=== PATIENT | male | born 1960 | race Hispanic/Latino ===

== ENCOUNTER 2020-05-23 03:04 | Emergency (ER) | payer MEDICAID ==
[2020-05-23 05:16] LABS: Basophils # (Auto) 0.1 K/mm3 (0.0-0.1); Basophils % (Auto) 0.9 % (0.0-1.8); Eosinophils # (Auto) 0.8 K/mm3 (0.0-0.4); Eosinophils % (Auto) 9.8 % (0.0-4.3); Hematocrit 28.1 % (35.5-45.6); Hemoglobin 9.2 gm/dl (11.8-15.2); Lymphocytes # (Auto) 1.4 K/mm3 (1.2-5.4); Lymphocytes % (Auto) 18.3 % (13.4-35.0); Mean Corpuscular HGB Conc 33 % (32-34); Mean Corpuscular Volume 91 fl (84-94); Monocytes # (Auto) 1.1 K/mm3 (0.0-0.8); Monocytes % (Auto) 13.9 % (0.0-7.3); Platelet Count 477 K/mm3 (140-440); Red Blood Count 3.09 M/mm3 (3.65-5.03); Red Cell Distribution Width 14.2 % (13.2-15.2)
[2020-05-23 05:20] LABS: Bacteria,Urine 1+ /HPF (Negative); Bilirubin,Urine NEG (Negative); Blood,Urine SM (Negative); Color,Urine Yellow (Yellow); Hyaline Casts,Urine 1 /LPF; Mucus,Urine FEW /HPF; Protein,Urine <15 mg/dL mg/dL (Negative); Urobilinogen,Urine < 2.0 mg/dL (<2.0)
[2020-05-23 05:24] LABS: Alanine Aminotransferase 17 units/L (7-56); Albumin 3.3 g/dL (3.9-5); BUN/Creatinine Ratio 18; Blood Urea Nitrogen 18 mg/dL (9-20); Calcium 9.9 mg/dL (8.4-10.2); Hemolysis Index 3
--- NOTE | 2020-05-23 07:45 | Emergency Department Report ---
ED General Adult HPI - General Chief complaint: Abdominal Pain Stated complaint: ABD PAIN PUI?: No Time Seen by Provider: 05/23/20 07:43 Source: patient Mode of arrival: Ambulatory Limitations: No Limitations - History of Present Illness Initial comments: Patient is a 59-year-old male that comes to the emergency room complaining of mid abdominal pain for 2 weeks off and on. His pain is in the epigastric upper regions of the abdomen not lower. He denies fever or chills. He does endorse dark stools, nausea, and diarrhea. He denies fever or chills. He denies coughing. Patient states he is not taking his home blood pressure Norvasc because he is out of it. He denies pain in his chest. He denies shortness of breath. Pain is most likely GERD or gastritis secondary to alcohol abuse. However, given his endorsement of cocaine and hypertension and need to rule out aortic dissection and acute coronary syndrome. Patient drinks daily smokes cigarettes daily and utilizes recreational drugs the last of which was cocaine 4 days ago. Patient denies any previous cardiac disease or strokes. Usual care is received at [place]. -: Gradual, days(s) Location: abdomen Radiation: non-radiation Consistency: intermittent Improves with: none Worsens with: none Associated Symptoms: nausea/vomiting. denies: confusion, chest pain, cough, diaphoresis, fever/chills, headaches, loss of appetite, malaise, rash, seizure, shortness of breath, syncope, weakness Treatments Prior to Arrival: none - Related Data Previous Rx's Medication Instructions Recorded Last Taken Type Amlodipine Besylate [Norvasc] 5 mg PO DAILY #30 tablet 05/23/20 Unknown Rx Sulfamethoxazole/Trimethoprim 1 each PO BID #10 tablet 05/23/20 Unknown Rx [Bactrim DS TAB] Allergies Allergy/AdvReac Type Severity Reaction Status Date / Time ibuprofen [From Motrin] Allergy Dizziness Verified 05/23/20 03:38 ED Review of Systems ROS: Stated complaint: ABD PAIN Other details as noted in HPI Comment: All other systems reviewed and negative ED Past Medical Hx - Past Medical History Previous Medical History?: Yes Hx Hypertension: Yes Hx CVA: No Hx Heart Attack/AMI: No Hx Congestive Heart Failure: No Hx Diabetes: No Hx Deep Vein Thrombosis: No Hx Pulmonary Embolism: No Hx GERD: No Hx Liver Disease: No Hx Renal Disease: No Hx of Cancer: No Hx Sickle Cell Disease: No Hx Arthritis: No Hx Headaches / Migraines: No Hx Seizures: No Hx Kidney Stones: No Hx Psychiatric Treatment: No Hx Asthma: No Hx COPD: No Hx Tuberculosis: No Hx Dementia: No Hx HIV: No Additional medical history: Obese - Surgical History Past Surgical History?: No - Family History Family history: no significant - Social History Smoking Status: Current Every Day Smoker Substance Use Type: Alcohol, Cocaine, Methamphetamines - Medications Home Medications: Home Medications Medication Instructions Recorded Confirmed Last Taken Type Amlodipine Besylate [Norvasc] 5 mg PO DAILY #30 tablet 05/23/20 Unknown Rx Sulfamethoxazole/Trimethoprim 1 each PO BID #10 tablet 05/23/20 Unknown Rx [Bactrim DS TAB] ED Physical Exam - General Limitations: No Limitations General appearance: alert - Head Head exam: Present: atraumatic, normocephalic - Eye Eye exam: Present: normal appearance - ENT ENT exam: Present: mucous membranes moist - Neck Neck exam: Present: normal inspection - Respiratory Respiratory exam: Present: normal lung sounds bilaterally. Absent: respiratory distress - Cardiovascular Cardiovascular Exam: Present: regular rate, normal rhythm. Absent: systolic murmur, diastolic murmur, rubs, gallop - GI/Abdominal GI/Abdominal exam: Present: soft, tenderness, normal bowel sounds - Rectal Rectal exam: Present: deferred - Extremities Exam Extremities exam: Present: normal inspection - Back Exam Back exam: Present: normal inspection. Absent: tenderness, CVA tenderness (R), CVA tenderness (L) - Neurological Exam Neurological exam: Present: alert, oriented X3 - Psychiatric Psychiatric exam: Present: normal affect, normal mood - Skin Skin exam: Present: warm, dry, intact, normal color. Absent: rash ED Course Vital Signs 05/23/20 05/23/20 03:36 10:32 Temperature 98.0 F Pulse Rate 115 H 98 H Respiratory 20 18 Rate Blood Pressure 195/104 Blood Pressure 188/102 [Left] O2 Sat by Pulse 98 98 Oximetry - Reevaluation(s) Reevaluation #1: 05/23/20 10:41 On reexam patient is having no further pain. ED Medical Decision Making - Lab Data Result diagrams: 05/23/20 04:43 05/23/20 04:43 - EKG Data EKG shows normal: sinus rhythm Rate: normal - EKG Data When compared to previous EKG there are: no significant change Interpretation: no acute changes - Radiology Data Radiology results: report reviewed, image reviewed [facility] - Medical Decision Making Labs 05/23/20 05/23/20 05/23/20 04:43 04:43 04:43 WBC 7.9 RBC 3.09 L Hgb 9.2 L Hct 28.1 L MCV 91 MCH 30 MCHC 33 RDW 14.2 Plt Count 477 H Lymph % (Auto) 18.3 [place] % (Auto) 13.9 H Eos % (Auto) 9.8 H Baso % (Auto) 0.9 Lymph # (Auto) 1.4 [place] # (Auto) 1.1 H Eos # (Auto) 0.8 H Baso # (Auto) 0.1 Seg Neutrophils % 57.1 Seg Neutrophils # 4.5 Sodium 138 Potassium 4.6 Chloride 103.0 Carbon Dioxide 25 Anion Gap 15 BUN 18 Creatinine 1.0 Estimated GFR > 60 BUN/Creatinine Ratio 18 Glucose 97 Calcium 9.9 Total Bilirubin < 0.20 AST 22 ALT 17 Alkaline Phosphatase 62 Troponin T < 0.010 Total Protein 7.8 Albumin 3.3 L Albumin/Globulin Ratio 0.7 Lipase 42 Urine Color Urine Turbidity Urine pH Ur Specific [place] Urine Protein Urine Glucose (UA) Urine Ketones Urine Blood Urine Nitrite Urine Bilirubin Urine Urobilinogen Ur Leukocyte Esterase Urine WBC (Auto) Urine RBC (Auto) Urine Bacteria (Auto) Hyaline Casts Urine Mucus Urine Yeast (Budding) 05/23/20 Unknown WBC RBC Hgb Hct MCV MCH MCHC RDW Plt Count Lymph % (Auto) [place] % (Auto) Eos % (Auto) Baso % (Auto) Lymph # (Auto) [place] # (Auto) Eos # (Auto) Baso # (Auto) Seg Neutrophils % Seg Neutrophils # Sodium Potassium Chloride Carbon Dioxide Anion Gap BUN Creatinine Estimated GFR BUN/Creatinine Ratio Glucose Calcium Total Bilirubin AST ALT Alkaline Phosphatase Troponin T Total Protein Albumin Albumin/Globulin Ratio Lipase Urine Color Yellow Urine Turbidity Clear Urine pH 5.0 Ur Specific [place] 1.020 Urine Protein <15 mg/dl Urine Glucose (UA) Neg Urine Ketones Neg Urine Blood Sm Urine Nitrite Pos Urine Bilirubin Neg Urine Urobilinogen < 2.0 Ur Leukocyte Esterase Mod Urine WBC (Auto) 42.0 H Urine RBC (Auto) 3.0 Urine Bacteria (Auto) 1+ Hyaline Casts 1 Urine Mucus Few Urine Yeast (Budding) Few Vital Signs 05/23/20 05/23/20 03:36 10:32 Temperature 98.0 F Pulse Rate 115 H 98 H Respiratory 20 18 Rate Blood Pressure 195/104 Blood Pressure 188/102 [Left] O2 Sat by Pulse 98 98 Oximetry Vital signs noted on arrival. Patient was tachycardic and hypertensive. EKG noted on arrival to be sinus rhythm without acute ST elevation or depression. Heart rate on 12-lead was 102. Labs noted. Troponin negative. Lipase normal. Hemoglobin at 9 which is consistent with a prior hemoglobin here in the ER. Patient denies any bloody emesis or bloody stools. CTA abdomen chest and pelvis none read negative by radiology. UA noted. Patient denies any dysuria or flank pain. Denies any penile discharge. Patient was given a gram of Rocephin IV and will be sent home on antibiotics. A culture is pending. Please call him should he need additional antibiotics or change in antibiotics. On reexam blood pressure is trending down. Patient was given hydro-IV and his home Norvasc. Patient has been instructed on cessation of his recreational drugs and the risk that they pose to his health. Patient is being discharged home with discharge instructions including follow- up, medications, diet and activity. He has been given referral to our primary care doctor as well. Have given him a prescription for his Norvasc. Patient verbalizes understanding of discharge plan of care including diet, activity, medications and follow-up. Patient ambulatory and nontoxic on discharge from the ER.. - Differential Diagnosis Rule out acute coronary syndrome secondary to cocaine use-rule out liver di Critical care attestation.: If time is entered above; I have spent that time in minutes in the direct care of this critically ill patient, excluding procedure time. ED Disposition Clinical Impression: Cocaine use, Hypertension, UTI (urinary tract infection), Nonadherence to medical treatment, Alcohol abuse, Chronic anemia Disposition: DC-01 TO HOME OR SELFCARE Is pt being admited?: No Does the pt Need Aspirin: No Condition: Stable Instructions: Hypertension, Adult, Hypertension (ED) Additional Instructions: Diet as tolerated. Avoid drugs and alcohol. Stay well-hydrated with water. Follow-up with primary care doctor. Referral has been given below. Follow-up with GI doctor referral has been given below. Take your Norvasc daily as instructed. I have given you refill. Complete your antibiotic provided today. Prescriptions: Sulfamethoxazole/Trimethoprim [Bactrim DS TAB] 1 each PO BID #10 tablet Amlodipine Besylate [Norvasc] 5 mg PO DAILY #30 tablet Referrals: TYREL JENKINS MD [Staff Physician] - 3-5 Days PRIMARY CARE, [Primary Care Provider] - 3-5 Days DAMARI SPENCER MD [Staff Physician] - 3-5 Days Time of Disposition: 10:06
[2020-05-23] MEDS ORDERED: hydrALAZINE 20 MG/1 ML INJ IV ONE (08:20)
--- NOTE | 2020-05-23 09:37 | Cat Scan Report ---
CT angio chest, CT angio abdomen pelvis INDICATION: abd pain sp cocaine with htn. TECHNIQUE: All CT scans at this location are performed using CT dose reduction for ALARA by means of automated e xposure control. MIP and 3-dimensional reconstructions were produced. COMPARISON: None available. FINDINGS: Thoracic aorta is normal in caliber. Maximum diameter of the ascending aorta is 3.5 cm, and maximum d iameter of the transverse and descending thoracic aorta is also 3.5 cm. There is mild atherosclerosis . Great vessels arising from the aortic arch are normal in caliber. No evidence of dissection. Rand ry arteries are not optimally seen on this exam but appear grossly unremarkable. Heart is normal in s ize. No pericardial effusion. Mild, diffuse interstitial lung disease. No evidence of pulmonary embolus. Abdominal aorta is tortuous and moderately atherosclerotic. Celiac axis, SMA, bilateral renal arterie s and CATE are all patent. Iliac arteries are also mildly atherosclerotic but normal in caliber. No ev idence of dissection. IMPRESSION: 1. No CT evidence of aortic dissection or other appreciable complication of cocaine use involving the cardiovascular system. Signer Name: Balwinder Steinberg MD Signed: 05/23/2020 9:33 AM Workstation Name: [id number]
[2020-05-23] MEDS ORDERED: cefTRIAXone/NS 1 GM/50 ML 1 GM/50 ML BAG IV ONE (09:47)
[2020-05-23] MEDS ORDERED: amLODIPine 5 MG TAB PO ONE (09:48)
[2020-05-23 10:33] VITALS: BP 188/102
== END 2020-05-23 11:02 | disposition home or self-care (01) ==
LOC: ED 03:04
DX: I10 Essential (primary) hypertension (principal); D64.9 Anemia, unspecified; N39.0 Urinary tract infection, site not specified; F10.10 Alcohol abuse, uncomplicated; E66.9 Obesity, unspecified; F17.200 Nicotine dependence, unspecified, uncomplicated; F15.10 Other stimulant abuse, uncomplicated; F14.90 Cocaine use, unspecified, uncomplicated; Z68.26 Body mass index [BMI] 26.0-26.9, adult; Z88.6 Allergy status to analgesic agent; Z79.899 Other long term (current) drug therapy; Z91.19 Patient's noncompliance with other medical treatment and regimen
CPT/HCPCS: 36415; 71275; 74174; 80053; 81001; 83690; 84484; 85025; 87086; 93005; 96365; 96375; 99284; J0360; J0696; Q9967